=== PATIENT | male | born 1985 | race Caucasian/White ===

== ENCOUNTER 2019-03-12 06:02 | Emergency (ER) | payer OTHER ==
[2019-03-12] MEDS ORDERED: Ondansetron PF 4 MG/2 ML Vial ONE ×2 (06:22→14:42)
[2019-03-12] MEDS ORDERED: Morphine 4 MG/ML VIAL ONE ×2 (06:22→08:09)
[2019-03-12 06:38] LABS: #Basophils 0.1 thou/uL (0.0-0.2); #Eosinphils 0.2 thou/uL (0.0-0.7); #Lymphocytes 2.2 thou/uL (1.20-3.40); #Monocytes 1.3 thou/uL (0.11-0.59); #Neutrophils 10.7 thou/uL (1.40-6.50); %Basophils 0.4 % (0.0-1.0); %Eosinophils 1.6 % (0.0-10.0); %Lymphocytes 15.1 % (21.0-51.0); %Monocytes 8.7 % (0.0-10.0); %Neutrophils 74.3 % (42.0-75.0); Hemoglobin 15.4 g/dL (14.0-18.0); Mean Corpuscular HGB CONC 34.8 g/dL (32.0-36.0); Mean Corpuscular Hemoglobin 31.1 pg (27.0-31.0); Mean Corpuscular Volume 89.5 fL (78.0-98.0); Mean Platelet Volume 9.1 fL (7.4-10.4); Platelet Count 205 thou/uL (130-400); RBC Distribution Width 11.6 % (11.5-14.5); Red Blood Cell (RBC) Count 4.93 mill/uL (4.70-6.10); White Blood Cell (WBC) Count 14.4 thou/uL (4.8-10.8)
[2019-03-12 06:58] LABS: ALT (SGPT) 37 U/L (8-55); AST (SGOT) 26 U/L (5-34); Albumin 4.4 g/dL (3.5-5.0); Alkaline Phosphatase 83 U/L (40-150); Anion Gap 14 mmol/L (10-20); BUN (Urea Nitrogen) 15 mg/dL (8.9-20.6); Bilirubin, Total 0.5 mg/dL (0.2-1.2); Calc. Creatinine Clearance 0 mL/min (70-130); Calcium 9.3 mg/dL (7.8-10.44); Carbon Dioxide 23 mmol/L (22-29); Chloride 108 mmol/L (98-107); Estimated GFR-MDRD 77; Globulin 2.7 g/dL (2.4-3.5); Glucose 92 mg/dL (70-105); Potassium 3.8 mmol/L (3.5-5.1); Protein, Total 7.1 g/dL (6.0-8.3); Sodium 141 mmol/L (136-145)
[2019-03-12] MEDS ORDERED: Piperacillin/Tazobactam 4.5 GM in Sodium Chloride 0.9% 100 ML IVPB SCH (07:15)
[2019-03-12] MEDS ORDERED: Ketorolac Tromethamine 30 MG/ML VIAL ONE (08:09)
--- NOTE | 2019-03-12 08:21 | HP ---
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 He has suffered anorexia and nausea. He presents to the emergency room. He is evaluated, noted to have a white count of 14 and hemoglobin of 15. Basic metabolic profile essentially normal, undergoing CT scan of the abdomen and pelvis confirming appendicitis. ALLERGIES: NONE. TOBACCO: None. ALCOHOL: Rarely. MEDICATIONS: None. PAST SURGICAL HISTORY: Noncontributory. PAST MEDICAL HISTORY: Noncontributory. REVIEW OF SYSTEMS: Noncontributory. PHYSICAL EXAMINATION: VITAL SIGNS: Blood pressure 130/64, respiratory rate 18, heart rate 68. HEAD, EYES, EARS, NOSE, AND THROAT: Unremarkable. Sclerae nonicteric. SKIN: Nonjaundiced. LUNGS: Clear to auscultation. CARDIAC: Regular rate and rhythm. No murmur or gallop. ABDOMEN: Soft, tenderness in right lower quadrant. No guarding or rebound. Positive Rovsing. EXTREMITIES: Unremarkable. LABORATORY DATA: Laboratories have been as noted. ASSESSMENT AND PLAN: Acute appendicitis. Recommend laparoscopic video appendectomy. Risks of infection, bleeding, reoperation, and open procedure were discussed. Questions answered. Job ID: [id number]
[2019-03-12] MEDS ORDERED: Acetaminophen 1,000 MG in Premix Bag 1 BAG IVPB SCH (08:45)
--- NOTE | 2019-03-12 09:03 | CT ---
CT OF THE ABDOMEN AND PELVIS WITH IV CONTRAST: INDICATION: History of right lower quadrant abdominal pain, concern for appendicitis. COMPARISON: None. FINDINGS: The lung bases are clear. No focal hepatic lesion is evident. The pancreas and adrenal glands are normal appearing. There are small calcifications seen within the spleen consistent with granuloma. The spleen is upper limits o f normal measuring 13 cm. No focal renal lesion is evident. No free fluid or enlarged lymph nodes a re demonstrated. There is an enlarged appendix in the right lower quadrant of the abdomen measuring 13 mm. There is a 7 mm appendicolith seen at the base of the appendix. There is surrounding periappendiceal fat stran ding. No drainable fluid collection is evident. The bladder, rectum, and perirectal soft tissues ar e unremarkable. There are a few scattered diverticula involving the colon. No acute osseous abnorma lity is evident. There are bilateral pars defects at L4 and L5 without spondylolisthesis. There is also partial lumbarization of S1. IMPRESSION: 1. Findings of a noncomplicated acute appendicitis. 2. Findings called to Dr. Murphy at 6:52 a.m. on 03/12/2019. 3. Bilateral pars defects at L4 and L5 without spondylolisthesis. 4. Mild splenomegaly with findings of prior granulomatous disease. CODE CR POS: BH
[2019-03-12] MEDS ORDERED: Fentanyl 250 MCG/5 ML VIAL ONE (10:09)
[2019-03-12] MEDS ORDERED: Bupivacaine HCl 0.5%/Epinephrine 1:200,000/PF 30 ml Vial ONE (10:15)
[2019-03-12] MEDS ORDERED: Midazolam HCl 2 mg/2 ml Vial ONE (10:26)
[2019-03-12] MEDS ORDERED: ISOVUE-370 76%-LOCM 1 ML ONE (10:46)
[2019-03-12] MEDS ORDERED: PROPOFOL 200 MG/20 ML VIAL ONE (14:42)
[2019-03-12] MEDS ORDERED: Rocuronium Bromide 10 MG/ML (10ML VIAL) ONE (14:42)
[2019-03-12] MEDS ORDERED: Glycopyrrolate 0.2 MG/ML 5 ML SYRINGE ONE (14:42)
[2019-03-12] MEDS ORDERED: Succinylcholine Chloride 20 MG/ML 10 ml SYRINGE FS ONE (14:42)
[2019-03-12] MEDS ORDERED: Lidocaine 1% PF 5 ML VIAL ONE (14:42)
[2019-03-12] MEDS ORDERED: Dexamethasone 20 MG/5 ML VIAL ONE (14:42)
--- NOTE | 2019-03-12 15:32 | OP ---
DATE OF PROCEDURE: 03/12/2019 PREOPERATIVE DIAGNOSIS: Acute appendicitis. POSTOPERATIVE DIAGNOSIS: Acute appendicitis. PROCEDURE PERFORMED: Laparoscopic video appendectomy. ANESTHESIA: General, local of 0.5% Marcaine with epinephrine 30 mL. DESCRIPTION OF PROCEDURE: The patient was taken to the operating room, where under general anesthesia, Thompson catheter placed at the beginning of the procedure and removed at the end. Abdomen was clipped of hair, prepared with ChloraPrep and draped in routine fashion. Local anesthetic was infiltrated in the skin and subcutaneous tissue about each port site. An infraumbilical incision was made. Pneumoperitoneum to 15 mmHg was obtained with a Veress needle, replacing with a 5 port, video laparoscope inserted. Right lateral subcostal incision was made. A suprapubic incision was made and a 5 port and 12 port placed respectfully and mesoappendix was taken down with the LigaSure. The stump of the appendix divided this cecal stump with Endo-TAZ blue load stapler. Cecal stapled stump was hemostatic. Hemostasis was obtained with clips. Good hemostasis noted. Irrigant and pneumoperitoneum were evacuated. After appendix removed, submitted to Pathology. The suprapubic fascia was approximated with 0 Vicryl. Skin approximated with interrupted subdermal 4-0 Monocryl and [place] glue applied. Job ID: [id number]
== END 2019-03-12 09:56 | disposition admitted as inpatient to this hospital (09) ==
LOC: ERS 06:02
DX: K35.80 Unspecified acute appendicitis (principal); F17.220 Nicotine dependence, chewing tobacco, uncomplicated
CPT/HCPCS: 74177; 80053; 85025; 88304; 96361; 96365; 96375; 96376; J0131; J0670; J1100; J1885; J2001; J2250; J2270; J2405; J2543; J2704; J3010; J3490; Q9966

== ENCOUNTER 2020-01-02 10:59 | Outpatient (CLI) | payer OTHER ==
--- NOTE | 2020-01-02 11:51 | CT ---
Exam: Lumbar spine CT without contrast HISTORY: Low back pain with radiation down the right leg. COMPARISON: None FINDINGS: 5 lumbar type vertebra. Lumbar spine vertebral body height is maintained. No fracture. Part ial lumbarization of S1. Bilateral pars defects at L5, without associated spondylolisthesis. Visualized solid organs and paraspinal muscles have appropriate attenuation. Presacral fat is preserved Sacroiliac are intact. Visualized sacrum and iliac bones do not demonstrate any acute abnormality. Limited evaluation of the contents of the central spinal canal and neural foramina due to technique T11-T12 and T12-L1: No significant central canal stenosis or significant neural foraminal narrowing L1-L2: No significant central canal stenosis or significant neural foraminal narrowing L2-L3: Broad-based disc bulge abuts the thecal sac. No significant central canal stenosis or signific ant neural foraminal narrowing L3-L4: No posterior disc abnormality. No significant central canal stenosis or significant neural for aminal narrowing L4-L5: Broad-based disc bulge abuts the thecal sac. Mild central canal stenosis. Mild bilateral юлия inal narrowing due to disc material L5-S1: Broad-based disc bulge abuts the thecal sac. No significant central canal stenosis or signific ant neural foraminal narrowing IMPRESSION: 1. Broad-based disc bulge at L2-L3, L4-L5 and L5-S1. Mild central canal stenosis at L4-L5. 2. 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
== END 2020-01-02 11:00 | disposition home or self-care (01) ==
LOC: TBSIIMAG 10:59
PROVIDERS: ATTEND Neurological Surgery
DX: M54.5 Low back pain (principal); M51.86 Other intervertebral disc disorders, lumbar region; M51.87 Other intervertebral disc disorders, lumbosacral region; M48.061 Spinal stenosis, lumbar region without neurogenic claudication; M47.816 Spondylosis without myelopathy or radiculopathy, lumbar region; M43.16 Spondylolisthesis, lumbar region
CPT/HCPCS: 72131